=== PATIENT | female | born 1955 | race Caucasian/White ===

== ENCOUNTER 2019-02-11 11:53 | Day surgery (SDC) | payer OTHER ==
[~2019-02-11] VITALS: Ht 175.3 cm; Wt 59.9 kg
--- NOTE | ~2019-02-11 | O ---
[facility] [place] [address] OPERATIVE REPORT Name: VERENA BLANCO Room #: 150-4 [facility]..#: [id number] Admission: 02/11/19 ������������������ Attend Phys: Gavin Pratt MD Discharge: ������������������ Date of : 57 Report #: [id number] THIS REPORT FOR: //name// CC: Maria G Pratt DATE OF SERVICE: 02/11/2019 PREOPERATIVE DIAGNOSIS: Left maxillary sinusitis. POSTOPERATIVE DIAGNOSIS: Left maxillary sinusitis. PROCEDURE: Endoscopic left nasal antral window with content removal. SURGEON: Gavin Pratt M.D. ANESTHESIA: General LMA. INDICATIONS: See H and P. FINDINGS: Edematous middle meatal tissue was noted with some polypoid changes along the uncinate process and the mucosa around the natural maxillary ostia. Purulence was noted within the sinus cavity itself, but no cobblestoning of the mucosa or mass was noted. TECHNIQUE: After obtaining consent, she was brought to the operating suite, appropriate time out was performed. General LMA anesthesia was obtained, the bed was turned 90 degrees. Nose was prepped and draped in usual sterile fashion. Cottonoids soaked with Afrin were placed in the nares on the left side for vasoconstriction. A 2 mL of 1% Xylocaine was injected on the anterior face of the middle turbinate and along the uncinate process on the left side. Using a 30-degree endoscope, the left naris was intubated. The [place] was used to medialize the middle turbinate. The uncinate process was brought forward with a double ball, immediately purulence was noted coming out of the maxillary ostia. The ostia was enlarged with a combination of a side biter along with microdebrider, creating a much larger antrostomy. I removed any edematous tissue in the surrounding area. Purulence was noted. Cultures were taken. I then thoroughly irrigated the maxillary sinus until the effluent appeared clear. Reinspected the cavity at that time and no active purulence was noted. There were no masses noted. A single piece of Xerogel was then placed between the middle turbinate and the lateral wall to prevent lateralization of the middle turbinate. She was turned back over to anesthesia where she lightened, extubated and taken to the recovery room in stable condition. [address] [address] OPERATIVE REPORT Name: VERENA BLANCO Nisha Room #: 150-4 [facility] M.R.#: [id number] Admission: 02/11/19 ������������������ Attend Phys: Gavin Pratt MD Discharge: ������������������ Date of : 57 Report #: [id number] ESTIMATED BLOOD LOSS: Less than 5 mL. ��������������������������������������������� ���������������������������������������� By: ��������������������������������������������� [id number] Gavin Pratt MD /nt
[2019-02-11 09:54] VITALS: BP 129/58
[~2019-02-11 11:53] MED LIST: ACCUNEB SO1.25 MG/1 INH; ASPIR 8181 MG PO; ATORVASTATIN CA40 MG PO; INVOKANA300 MG PO; LEVEMIR FL100 UNIT/2 SUBQ; LISINOPRIL5 MG PO; METFORMIN HCL500 MG PO; NORCO 10-325 T1 EACH PO; SERTRALINE HCL100 MG PO; VITAMIN B-121000 MC3 PO; VITAMIN D1000 UNI2 PO; XANAX 0.25 MG0.25 MG PO
== END 2019-02-11 12:20 | disposition home or self-care (01) ==
LOC: TBA 11:53 → OR 11:53
DX: J32.0 Chronic maxillary sinusitis (principal); F32.9 Major depressive disorder, single episode, unspecified; F41.9 Anxiety disorder, unspecified; J45.909 Unspecified asthma, uncomplicated; Z98.890 Other specified postprocedural states; Z87.891 Personal history of nicotine dependence; Z79.899 Other long term (current) drug therapy; E78.5 Hyperlipidemia, unspecified; E11.9 Type 2 diabetes mellitus without complications; Z79.84 Long term (current) use of oral hypoglycemic drugs; Z90.710 Acquired absence of both cervix and uterus
CPT/HCPCS: 50010; 50101; 50286; 50386; 50398; 50573; 52290; 52291; 53618; 56635; 62110; 62900; 64037; 70005